=== PATIENT | male | born 1985 | race African-American/Black ===

== ENCOUNTER 2019-04-01 08:42 | Emergency (ER) | payer BC, SELFPAY ==
[2019-04-01] MEDS ORDERED: Lidocaine 1% (PF) 30 ML VIAL ONE (09:25)
[2019-04-01] MEDS ORDERED: cefTRIAXone\\ROCEPHIN 1 GM VIAL ONE (09:25)
[2019-04-01] MEDS ORDERED: Dexamethasone 10 MG/ML VIAL ONE (09:25)
== END 2019-04-01 09:43 | disposition home or self-care (01) ==
LOC: ERS 08:42
DX: L04.0 Acute lymphadenitis of face, head and neck (principal)
CPT/HCPCS: 87081; 87430; 87804; 96372; 99283; J0696; J1100; J2001

== ENCOUNTER 2024-04-05 13:27 | Emergency (ER) | payer SELFPAY | END 2024-04-05 14:21 | disposition home or self-care (01) | LOC: ERS 13:27 | DX: J02.9 Acute pharyngitis, unspecified (principal); J06.9 Acute upper respiratory infection, unspecified | CPT/HCPCS: 87081; 87430; 99283 ==